=== PATIENT | female | born 1970 | race Caucasian/White ===

== ENCOUNTER → 2017-07-30 | Outpatient (CLI) | payer BC ==
[~2017-07-30] MED LIST: EFF50 PO
--- NOTE | 2017-07-31 07:26 | MAMMOGRAPHY REPORT ---
BILATERAL DIGITAL SCREENING MAMMOGRAM TOMOSYNTHESIS WITH CAD: 07/30/2017 CLINICAL HISTORY: Routine screening. Patient has no complaints. TECHNIQUE: Breast tomosynthesis in addition to standard 2D mammography was performed. Current study was also evaluated with a Computer Aided Detection (CAD) system. COMPARISON: Comparison is made to exams dated: 07/11/2016 mammogram, 07/08/2015 mammogram, 01/25/2012 mammogram, 12/08/2010 mammogram, and 11/03/2009 mammogram - [facility]. BREAST COMPOSITION: The tissue of both breasts is heterogeneously dense, which may obscure small mas ses. FINDINGS: The parenchymal pattern is unchanged. No developing mass, architectural distortion or clus ter of suspicious microcalcifications is seen in either breast. IMPRESSION: ACR BI-RADS CATEGORY 2: BENIGN There is no mammographic evidence of malignancy. A 1 year screening mammogram is recommended. The pa tient will receive written notification of the results. Approximately 10% of breast cancers are not detected with mammography. A negative mammographic report should not delay biopsy if a clinically suggestive mass is present. Viry Mtz M.D. ay/:07/30/2017 16:50:30 [employer] Manager: Evita FORBES)(Terry), [facility] letter sent: Normal 1/2 BI-RADS Code: ACR BI-RADS Category 2: Benign
== END | disposition home or self-care (01) ==
LOC: C.MAMM 13:06
PROVIDERS: ATTEND Family Medicine
DX: Z12.31 Encounter for screening mammogram for malignant neoplasm of breast (principal)

== ENCOUNTER 2019-03-18 05:03 | Inpatient (IN) ==
--- NOTE | 2019-02-13 15:37 | PAT Medication Instructions ---
Medication Instructions Date of Service February 13, 2019 Home Medications Epinephrine [EpiPen] 0.3 mg IM Q3H PRN levothyroxine 75 mcg PO QAM meloxicam 15 mg PO HS simvastatin 40 mg PO PM topiramate 50 mg PO BID venlafaxine 150 mg PO HS Continue as directed Epinephrine [EpiPen] 0.3 mg IM Q3H PRN (if needed) ASK your surgeon for instructions meloxicam 15 mg PO HS Take morning of surgery With a small sip of water, OTHERWISE NOTHING TO EAT OR DRINK AFTER MIDNIGHT: levothyroxine 75 mcg PO QAM topiramate 50 mg PO BID Take evening before surgery simvastatin 40 mg PO PM topiramate 50 mg PO BID venlafaxine 150 mg PO HS Other Notes If you have any questions please call us at [phone] or [phone] or [phone] or [phone]
--- NOTE | 2019-02-17 09:45 | Anesthesiology Consultation ---
Date of Service February 17, 2019 Assessment & Plan (1) Encounter for pre-operative examination: - Check test AM DOS Chart Review Chart Review: Acceptable Risk for Surgery and Patient seen in Pre Admission Test ing Teaching & Discussion Pre-Anesthesia Teaching/Discussion Notes: Instructed NPO after midnight before surgery,except medications with 15 cc of water. Medication instructions provided according to the PAT guidelines. History Surgery Operation Date: 03/18/19 07:00 Proposed Procedures p Right Total Knee Arthroplasty - Leonel Pepe MD Height/Weight Height: 5 ft 7 in Weight: 141.2 kg Allergies Allergy/AdvReac Type Severity Reaction Status Date / Time bee venom protein (honey bee) Allergy Severe Anaphylaxis Verified 02/13/19 15:00 Medications Home Medications Medication Instructions Recorded Confirmed Last Taken epinephrine [EpiPen] 0.3 mg IM Q3H PRN 02/13/19 02/13/19 Unknown levothyroxine 75 mcg PO QAM 02/13/19 02/13/19 Unknown meloxicam 15 mg PO HS 02/13/19 02/13/19 Unknown simvastatin 40 mg PO PM 02/13/19 02/13/19 Unknown topiramate 50 mg PO BID 02/13/19 02/13/19 Unknown venlafaxine 150 mg PO HS 02/13/19 02/13/19 Unknown Past Medical History Medical History Anxiety Depression Hyperlipidemia Hypothyroidism Migraine Morbid obesity Osteoarthritis Prediabetes Scoliosis MILD Sleep apnea NO DEVICE Temporomandibular joint disorder OCCASIONAL "POPPING"/NO LOCKING Exercise / Class Metabolic Activity II 4-5 Yardwork/Stairs/Walk up hill Past Family History Family History Grandmother (Paternal) Family history of diabetes mellitus Past Surgical History Surgical History Cyst RIGHT FOOT CYST EXCISION History of esophagogastroduodenoscopy (EGD) History of tonsillectomy History of tooth extraction Past Anesthesia History No Hx of Anesthesia Complications (EXCEPT POST-OP NAUSEA) and No Family Hx of Anesthesia Complications History of PONV No Hx of Motion Sickness and History of PONV Social History Smoking Status: Former smoker Do You Dip or Chew Tobacco: No Smoking End Date: QUIT 12 YEARS AGO Hx Alcohol Use: Yes Alcohol type: hard liquor alcohol intake frequency: a few times a month Hx Substance Use: No substance use type: does not use Review of Systems Patient denies chest pain, shortness of breath, dyspnea on exertion, joint pain, reflux, cough, wheezing, palpitations. Physical Exam Vital Signs VITALS BP 121/85 P 79 TEMP 98.8 SP02 96%RA RESP 16 PHYSICAL Full neck and c-spine range of motion. Full TMJ range of motion. TMD 3 finger breaths Mallampati Score 2 Dentition: intact, crown on molar/sides Lungs: clear throughout to auscultation Cardiac: regular rate and rhythm, no murmurs noted Spine: normal Carotid arteries: negative bruit Extremities: no edema Testing Laboratory Results 02/17/19 10:02 02/17/19 10:02 02/17/19 02/17/19 10:02 10:02 PT 10.2 INR 1.0 APTT 26.2 Blood Type A Positive Antibody Screen NEGATIVE Electrocardiogram Date: 02/17/19 Findings: + NSR @ (74) Chest X-Ray Date: 02/17/19 Findings: + NAD
--- NOTE | 2019-02-17 10:25 | XRay Report ---
XR chest Pre-admission PA/Lat CLINICAL HISTORY: pat preoperative evaluation COMPARISON STUDY: No previous studies for comparison. FINDINGS: The bones soft tissues and hemidiaphragms are normal. The cardiomediastinal silhouette is n ormal. The lungs are clear. The pulmonary vasculature is normal. IMPRESSION: Negative chest. The above report was generated using voice recognition software. It may contain grammatical, syntax or spelling errors. Electronically signed by: Chace Snell M.D. 02/17/2019 10:23 AM
[2019-02-17 11:31] LABS: Basophils # (auto) 0.02 K/uL (0-0.2); Basophils % (auto) 0.3 %; Eosinophils # (auto) 0.13 K/uL (0-0.5); Eosinophils % (auto) 2.1 %; Hematocrit (blood only) 43.3 % (37-47); Hemoglobin 14.4 g/dL (12.0-16.0); Immature Granulocytes # (auto) 0.02 K/uL (0.00-0.02); Immature Granulocytes % (auto) 0.3 %; Lymphocytes # (auto) 1.09 K/uL (1.2-3.4); Lymphocytes % (auto) 17.5 %; Mean Corpuscular Hgb Conc 33.3 g/dL (32-36); Mean Corpuscular Volume 86.6 fL (80-100); Monocytes # (auto) 0.49 K/uL (0.11-0.59); Monocytes % (auto) 7.9 %; Neutrophils # (auto) 4.49 K/uL (1.4-6.5); Neutrophils % (auto) 71.9 %; Platelet Count 182 K/uL (130-400); RDW Standard Deviation 43.9 fL (36.4-46.3); White Blood Count 6.24 K/uL (4.8-10.8)
[2019-02-17 11:40] LABS: Calcium 8.9 mg/dl (8.5-10.1); Creatinine Clr Calc Pharmacy 92.9 ml/min; Est GFR (African American) 69.8; Est GFR (Non-African American) 60.2; Potassium 4.3 mmol/L (3.5-5.1)
[2019-02-17 11:54] LABS: Partial Thromboplastin Time 26.2 Seconds (21.0-31.0); Prothrombin Time 10.2 Seconds (9.0-12.0)
--- NOTE | 2019-03-15 09:32 | History and Physical Report ---
DATE OF ADMISSION: 03/18/2019 CHIEF COMPLAINT: Right knee pain and discomfort. HISTORY OF PRESENT ILLNESS: The patient is a 48-year-old female referred to me by my partner, Dr. Monroy, for surgical treatment of her right knee. She has a 5-year history of gradually increasing right knee pain and discomfort. She describes a global pain in the knee. The more she walks, the more it hurts. She has been through extensive conservative treatment which provides very temporary relief only. She takes meloxicam, which helps a little bit. She has had various injections which have become less successful over time. It is really starting to limit her ability to get around and walk. If she is active one day, she will really pay for it the next day. She has nighttime pain. Difficulty going up and down steps. She would like to have her right knee fixed. PAST MEDICAL HISTORY: Significant for, 1. Elevated cholesterol. 2. Sleep apnea. 3. Anxiety/depression. 4. Hypothyroidism. 5. Arthritis. 6. Obesity with a BMI of 49. PAST SURGICAL HISTORY: 1. Tonsillectomy. 2. Cyst removed from her right foot. ALLERGIES: BEE VENOM. CURRENT MEDICINES: Include, 1. Effexor 150 mg once a day. 2. Levoxyl 75 mcg a day. 3. Meloxicam 15 mg. 4. Simvastatin 40 mg. 5. Topiramate 500 mg twice a day. SOCIAL HISTORY: A 48-year-old female. She drinks 3 drinks per week. Does not smoke. FAMILY HISTORY: Noncontributory. REVIEW OF SYSTEMS: Negative for diabetes. Denies any chest pain or shortness of breath. No history of DVT or PE. She has been in a weight loss program, but having difficulty with this due to her limited activity. PHYSICAL EXAMINATION: GENERAL: Reveals a pleasant middle-aged female, who looks to be in reasonably good health. HEENT: Benign. NECK: Supple. No lymphadenopathy. LUNGS: Clear to auscultation. HEART: Regular rate and rhythm. ABDOMEN: Soft, nontender, nondistended. EXTREMITIES: Grossly neurovascularly intact except as follows: Examination of the right knee reveals the patient walks with a slightly antalgic gait. A fairly large soft tissue envelope. Knee alignment looks pretty anatomic. Her range of motion is full extension, about 120 degrees of flexion. This is limited somewhat by her soft tissues. She has no AP or mediolateral instability. She does have pain with Manuel's testing. No pain with hip motion. X-RAYS: X-ray of the right knee reviewed. It shows advanced right knee DJD. She has got complete loss of medial joint space. She has got osteophytes off the medial femoral condyle and medial tibial plateau and a little bit of subchondral sclerosis. ASSESSMENT: A 48-year-old white female with underlying obesity with 5-year history of increasing right knee pain, discomfort, unresponsive to conservative treatment. She would really like to have her knee replaced. PLAN: We will take her to the operating room and do a right total knee replacement. The risks and benefits of this procedure were explained to the patient including, but not limited to, DVT, PE, , infection, neurological injury, vascular injury, bleeding problem, pain, limited range of motion, stiffness, failure to relieve symptoms, incomplete relief of symptoms, need for further surgery in the future, fracture, leg length inequality, nerve palsy, etc. The patient understands and desires to proceed. Informed consent was obtained. She knows at her young age, this may loosen or need to revise in the future and she is fully aware of this. She does not want to do home PT and she can go to outpatient therapy.
[2019-03-18] MEDS ORDERED: LR 60ML/HR IV SCH (06:00)
[2019-03-18] MEDS ORDERED: FAMOTIDINE 20 MG TAB PO SCH (06:00)
[2019-03-18] MEDS ORDERED: METOCLOPRAMIDE HCL 10 MG TABLET PO SCH (06:00)
[2019-03-18] MEDS ORDERED: ACETAMINOPHEN 500 MG TAB PO SCH (06:00)
[2019-03-18] MEDS ORDERED: CEFAZOLIN 3000MG 65 ML IV SCH (06:00)
[2019-03-18] MEDS ORDERED: LR 500ML BOLUS, THEN 15ML/HR IV SCH (06:00)
[2019-03-18] MEDS ORDERED: SCOPOLAMINE 1.5 MG TDSY TD SCH (06:00)
[2019-03-18] MEDS ORDERED: BUPIVACAINE LIPOSOME/PF 266 MG, BUPIVACAINE/EPINEPHRINE 50 ML, SODIUM CHLORIDE 0.9% 30 ... INFIL SCH (06:00)
[2019-03-18] MEDS ORDERED: GABAPENTIN 300 MG x 3 PO SCH (06:00)
[2019-03-18] MEDS ORDERED: ROPIVACAINE 0.5% 5 MG/ML 30 ML VIAL ONE (06:14)
[2019-03-18] MEDS ORDERED: BUPIVACAINE 0.5 % 5 MG/1 ML PF 10ML VIAL ONE (06:14)
[2019-03-18] MEDS ORDERED: ePHEDrine sulfate 50 MG/ML AMP IV PRN (06:24)
[2019-03-18] MEDS ORDERED: ONDANSETRON INJ 2 MG/ML 2 ML VIAL IV PRN ×2 (06:24→10:17)
[2019-03-18] MEDS ORDERED: ATROPINE SULFATE 0.1 MG/ML 10ML SYR IV PRN (06:24)
[2019-03-18] MEDS ORDERED: fentaNYL citrate 100 MCG/2 ML VIAL IV PRN (06:24)
[2019-03-18] MEDS ORDERED: MIDAZOLAM HCL 1 MG/ML 2ML VIAL ONE (06:27)
[2019-03-18] MEDS ORDERED: KETAMINE HCL INJ 50 MG/ML 10 ML VIAL ONE (06:28)
[2019-03-18] MEDS ORDERED: TRANEXAMIC ACID 1,000 MG **IV Intra-op IV SCH (06:30)
[2019-03-18] MEDS ORDERED: BACITRACIN INJ 50,000 UNIT VIAL ONE (06:33)
[2019-03-18] MEDS ORDERED: SODIUM CHLORIDE 0.9% PF 50 ML VIAL ONE (06:33)
[2019-03-18] MEDS ORDERED: BUPIVACAINE LIPOSOME 1.3% 266 MG/20 ML VIAL ONE (06:33)
[2019-03-18] MEDS ORDERED: fentaNYL citrate 100 MCG/2 ML VIAL ONE (06:34)
[2019-03-18] MEDS ORDERED: EPINEPHrine INJ 1 MG/ML AMP ONE (06:34)
[2019-03-18] MEDS ORDERED: BUPIVACAINE 0.25% 30 ML VIAL ONE (06:34)
--- NOTE | 2019-03-18 06:50 | History & Physical Bridge Note ---
Date of Service March 18, 2019 History & Physical Bridge Note I have examined the patient, reviewed the History & Physical and in the interval since the performance of the History & Physical I have noted the following changes of clinical significance: no changes noted
[2019-03-18] MEDS ORDERED: VANCOMYCIN HCL 1000MG/20ML VIAL ONE (07:06)
[2019-03-18] MEDS ORDERED: DEXAMETHASONE SOD INJ 4 MG/ML VIAL ONE (07:12)
[2019-03-18] MEDS ORDERED: PROPOFOL IV EMULSION 10 MG/ML 20 ML VIAL IV ONE ×4 (07:12→08:20)
[2019-03-18] MEDS ORDERED: GLYCOPYRROLATE 0.2 MG/ML VIAL ONE (07:12)
[2019-03-18] MEDS ORDERED: ONDANSETRON INJ 2 MG/ML 2 ML VIAL ONE (07:12)
[2019-03-18] MEDS ORDERED: LIDOCAINE HCL 2% 2 ML VIAL/AMP(20MG/ML) INFIL ONE (07:12)
--- NOTE | 2019-03-18 08:54 | Post Operative Brief Note ---
Immediate Post Op Note v1 Date of Surgery March 18, 2019 Pre & Post Diagnosis Operation Date: 03/18/19 07:00 Pre-Op Diagnosis: Right Knee Advanced Degenerative Joint Disease Post-Op Diagnosis: Right Knee Advanced Degenerative Joint Disease Procedure Operation Date: 03/18/19 07:00 Actual Procedures p Right Total Knee Arthroplasty(Right) - Leonel Pepe MD Surgeon Leonel Pepe MD Machine Presser Michael, PAC Estimated Blood Loss 50 Findings Consistent with Post-Op Diagnosis Fluids 1800 cc Specimens Right Knee Drains Patel Catheter (A 16 Croatian patel catheter was inserted by KYLAH Davis, without difficulty, clear yellow urine obtained, output to be monitored by Anesthesia.) Anesthesia Type Spinal MAC Complications none Disposition Accompanied Patient To Recovery: No Disposition: Recovery Room
--- NOTE | 2019-03-18 09:30 | XRay Report ---
XR knee RT 2V routine CLINICAL HISTORY: 48 years-old Female presenting with Surgical Post Op. TECHNIQUE: Frontal and crosstable lateral views of the right knee were obtained. COMPARISON: 01/16/2019. FINDINGS: There has been interval total right knee arthroplasty with patellar resurfacing. Expected intra-artic ular and soft tissue emphysema. Overlying skin sonido. No periprosthetic fracture or lucency. No mal alignment. IMPRESSION: Expected postsurgical appearance status post total right knee arthroplasty with patellar resurfacing. Electronically signed by: Juni Ibarra M.D. 03/18/2019 9:29 AM
--- NOTE | 2019-03-18 09:57 | Anesthesiology Progress Note ---
Date of Service March 18, 2019 Anesthesia Post Procedure Vital Signs Vital Signs: Temp Pulse Pulse Resp BP Pulse Ox 03/18/19 09:50 36.5 C 81 16 130/87 97 03/18/19 09:40 82 14 144/80 H 99 03/18/19 09:30 81 16 139/84 99 03/18/19 09:20 87 21 145/90 H 99 03/18/19 09:10 82 13 141/84 H 99 03/18/19 09:00 37.5 C 85 18 134/76 97 03/18/19 06:14 36.9 C 83 21 126/85 96 Pain Intensity Right Knee: Pain Intensity: 0 Transfer of Care Handoff Completed per policy Notes Mental Status: alert / awake / arousable Patient Amnestic to Procedure: Yes Nausea / Vomiting: adequately controlled Pain: adequately controlled Airway Patency, RR, SpO2: stable & adequate BP & HR: stable & adequate Hydration State: stable & adequate Neuraxial Anesthesia: was administered and sensory block is resolving Anesthetic Complications: no major complications apparent and Pt Satisfied with anesthetic care
[2019-03-18] MEDS ORDERED: BISACODYL 10 MG SUPP PR PRN (10:17)
[2019-03-18] MEDS ORDERED: EPINEPHrine INJ 1 MG/ML AMP IM PRN (10:17)
[2019-03-18] MEDS ORDERED: MAGNESIUM HYDROXIDE SUSP 30 ML UDC PO PRN (10:17)
[2019-03-18] MEDS ORDERED: HYDROmorphone INJ 0.5 MG/0.5 ML SYR IV PRN (10:17)
[2019-03-18] MEDS ORDERED: ALUMINUM/MAGNESIUM SUSP 30 ML UDC PO PRN (10:17)
[2019-03-18] MEDS ORDERED: NALOXONE HCL 0.4 MG/1 ML VIAL/CARP IV PRN (10:17)
[2019-03-18] MEDS ORDERED: METOCLOPRAMIDE HCL INJ 5 MG/ML 2 ML VIAL IV PRN (10:17)
--- NOTE | 2019-03-18 10:31 | Operative Report ---
DATE OF OPERATION: 03/18/2019 SURGEON: Leonel Pepe MD SALAD BAR CLERK: KYLAH Parra PREOPERATIVE DIAGNOSIS: Right knee degenerative joint disease. POSTOPERATIVE DIAGNOSIS: Right knee degenerative joint disease. PROCEDURE PERFORMED: Right cemented posterior stabilized total knee arthroplasty. COMPLICATIONS: None. ESTIMATED BLOOD LOSS: 50 mL. FLUID REPLACEMENT: 1800 mL crystalloid fluid replacement. TOURNIQUET TIME: 65 minutes at 350 mmHg. ANESTHESIA: Spinal with adductor canal block. DRAINS: None. SPECIMENS: Right knee sent for pathology. OPERATIVE INDICATIONS: The patient is a 48-year-old morbidly obese female who has had a long history of right knee pain and discomfort, unresponsive to conservative care. She had been treated by my partner, Dr. Monroy for several years. Pain has become more debilitating. She has attempted weight loss, but unsuccessful due to her limited mobility. X-rays revealed right knee DJD. She would like to proceed with surgical treatment. OPERATIVE FINDINGS: Operative findings revealed advanced right knee DJD with grade 4 changes in all 3 compartments, most severe in the medial side. She had a varus deformity to her knee. Very large soft tissue envelope. OPERATIVE IMPLANTS: Operative implants consisted of: 1. A Biomet Vanguard size 65 right posterior stabilized femoral component. 2. A Biomet size 67 tibial tray. 3. A 12 mm posterior stabilized polyethylene insert. 4. A 31 x 8 all poly patella. OPERATIVE PROCEDURE: The patient was taken to the operating room, identified and placed on the operating table in supine position. All contact areas were appropriately padded. IV antibiotics provided by anesthesia team. A spinal anesthetic and adductor canal block had been provided in the holding area. Swartz catheter was placed in sterile fashion. A right thigh tourniquet was then placed and the right lower extremity was then prepped and draped in usual sterile fashion. The right leg was elevated and exsanguinated with Esmarch and tourniquet was placed at 350 mmHg. An anterior approach of the right knee was then performed through a longitudinal incision centered over the patella. Sharp dissection was carried through the subcutaneous tissue down to the level of the extensor mechanism. A medial parapatellar arthrotomy incision was made. Some subperiosteal dissection was carried out medially. The fat pad resected from beneath the patellar tendon. The lateral patellofemoral ligament was released. The patella was subluxated laterally and the knee was flexed. The osteophytes were taken off the distal femur. The ACL and PCL were then released from the distal femur. The tibia was subluxated anteriorly. The external tibial alignment jig was then placed in the anterior face of the tibia and adjusted 14 mm medially. Proximal tibial cut was made to remove about 2 mm of bone from the most deficient aspect of the medial tibial plateau. Some osteophytes were taken off posteromedially. Tibia was sized to a size 67. Attention was then drawn to the femur. The distal femur was entered with a sharp drill bit. Intramedullary canal was suctioned. A right 5-degree valgus cutting guide was placed. Distal femoral cutting block was pinned in place. Distal femoral cut was made to take an additional 3 mm of bone off the distal femur. The femur was then sized to a size 65. We did downsize this almost an entire size due to the narrow medial and lateral dimensions. The AP cutting block was then pinned parallel to the epicondylar axis, which was 3 degrees of external rotation. The anterior cut, anterior chamfer, posterior cut, posterior chamfer cuts were made. Box cutting guide was placed and adjusted slightly lateral and box cut was made. The knee was flexed. The remnants of the medial and lateral menisci were excised. The osteophytes were taken off the posterior aspect of the femur. Trial femoral component was placed. The tibial tray was pinned in maximum external rotation and drill and stem punch were used to create defect in proximal tibia for the tibial tray. The knee was then trialed and 12 mm insert fit most appropriately. Attention was then drawn to the patella. The patella was cleaned of all soft tissues. Patellar thickness measured 20 mm in thickness, it was cut down to about 13. It was sized to a size 31 patella. Lug holes were drilled for 31 patella. The lateral osteophyte was removed. Patella button was placed. Knee was taken through range of motion, patella tracked nicely with no thumbs test. Attention was then drawn toward placement of permanent components. All trial components were removed. A bone plug was placed in the distal femur to limit blood loss. A double batch of Palacos G cement was mixed. I did add an additional gram of vancomycin due to her increased risk of infection due her morbid obesity. A Biomet size 65 right posterior stabilized femoral component, size 67 tibial tray, a 12 mm posterior stabilized polyethylene insert, and a 31 x 8 all poly patella then cemented in place. Knee was brought down to full extension until cement hardened. A final cement check was then performed. Pericapsular tissues were injected with a total of 100 mL of a combination of 20 mL of Exparel, 30 mL of normal saline, 50 mL of 0.25% Marcaine with epinephrine. The patient did receive 1 gram of tranexamic acid. The tourniquet was then let down for final tourniquet time of 65 minutes. Hemostasis was assured with use of electrocautery. The wound was once again irrigated. The extensor mechanism was then closed with combination of #1 PDS suture and #1 Vicryl suture in a [id number] fashion. Extensor mechanism was checked and found to be intact. Subcutaneous tissues were then closed with #2 Dexon suture in a buried interrupted fashion. Skin was closed with skin sonido. Leg was then cleaned, dried and a sterile dressing of Xeroform, 4 x 4, sterile cast padding and Simone bandage were applied. The patient then transferred to the recovery room in stable condition. The patient tolerated the procedure well with no complications. All needle and sponge counts were correct at the end of the operation. I attest to the content of the Intraoperative Record and any orders documented therein. Any exception s are noted below.
[2019-03-18] MEDS: SODIUM CHLORIDE 0.9% 1000ML 1,000 ML IV SCH ×2 (10:58→22:51)
[2019-03-18] MEDS: TOPIRAMATE 50 MG TAB PO SCH ×2 (12:07→20:13)
[2019-03-18] MEDS: MULTIVITAMIN TAB PO SCH (12:08)
[2019-03-18] MEDS: LEVOTHYROXINE SODIUM 75 MCG TABLET PO SCH ×2 (12:08→12:19)
[2019-03-18] MEDS: DOCUSATE SODIUM 100 MG CAP PO SCH ×2 (12:08→20:13)
[2019-03-18] MEDS: ASPIRIN 81 MG ECTAB PO SCH ×2 (12:08→20:13)
[2019-03-18] MEDS: KETOROLAC 30 MG/ML VIAL IV SCH ×3 (12:09→23:35)
[2019-03-18] MEDS: TAPENTADOL HCL ER 50 MG TABCR PO SCH ×2 (12:11→20:15)
--- NOTE | 2019-03-18 14:22 | Progress Note ---
DATE: 03/18/2019 SUBJECTIVE: A 48-year-old white female postop from a right knee replacement. She is doing well. Really not having much pain yet. No chest pain or shortness of breath. Not feeling dizzy or lightheaded. OBJECTIVE: VITAL SIGNS: Temperature 37.5. Vital signs stable. GENERAL: Physical examination shows a pleasant, middle-aged female. She is sitting up in bed, looks pretty comfortable. LUNGS: Clear to auscultation. HEART: Has a regular rate and rhythm. ABDOMEN: Soft, nontender, nondistended. EXTREMITIES: Grossly neurovascularly intact except as follows: Examination of the right lower extremity reveals the dressing to be clean, dry and intact. Leg is well aligned. She can dorsiflex and plantarflex her foot appropriately. She is neurologically intact. X-RAYS: X-rays of the right knee from recovery room reviewed. She has a right cemented posterior stabilized total knee arthroplasty. The components looked to be in good position. No signs of problems. ASSESSMENT: A 48-year-old white female postop from a right knee replacement, doing pretty well. Pain is controlled. She is neurologically intact. PLAN: 1. DVT prophylaxis including thigh-high TEDs, SCDs, and aspirin twice a day. 2. PT/OT. Weight bear as tolerated. Right total knee protocol. 3. Pain control, doing well with current pain regimen. 4. IV antibiotics x24 hours. 5. Disposition: Plan to discharge to home and she is going to do outpatient therapy once adequately recovered.
[2019-03-18] MEDS: ACETAMINOPHEN 500 MG TAB PO SCH ×2 (14:36→22:10)
[2019-03-18] MEDS: CHECK SCOPOLAMINE PATCH PLACEMENT SCH ×2 (15:31→23:38)
[2019-03-18] MEDS: CEFAZOLIN 2000MG 2,000 MG/15 ML SYR IV SCH ×2 (15:31→23:35)
[2019-03-18] MEDS: OXYCODONE HCL IR 5 MG TAB (IMMEDIATE RELEASE) PO PRN ×2 (15:57→23:35)
[2019-03-18] MEDS ORDERED: TRANEXAMIC ACID 1,000 MG in 0.9 % SODIUM CHLORIDE 100 ML IV SCH (16:00)
[2019-03-18] MEDS: ASCORBIC ACID 500 MG TAB PO SCH (17:40)
[2019-03-18] MEDS: FERROUS GLUCONATE 324 MG TAB PO SCH (17:40)
[2019-03-18] MEDS: SENNA 8.6 MG TAB PO SCH (20:13)
[2019-03-18] MEDS: SIMVASTATIN 40 MG TAB PO SCH (20:13)
[2019-03-18] MEDS: VENLAFAXINE HCL XR 150 MG CAPXR PO SCH (20:13)
[2019-03-19] MEDS: ACETAMINOPHEN 500 MG TAB PO SCH ×3 (05:30→21:17)
[2019-03-19] MEDS: KETOROLAC 30 MG/ML VIAL IV SCH ×4 (05:30→23:39)
[2019-03-19] MEDS: LEVOTHYROXINE SODIUM 75 MCG TABLET PO SCH (05:31)
[2019-03-19 07:01] LABS: Hematocrit (blood only) 36.3 % (37-47); Hemoglobin 11.7 g/dL (12.0-16.0); Mean Corpuscular Hgb Conc 32.2 g/dL (32-36); Mean Corpuscular Volume 87.1 fL (80-100); Mean Platelet Volume 10.2 fL (7.4-10.4); Platelet Count 165 K/uL (130-400); RDW Coefficient of Variation 13.7 % (11.5-14.5); RDW Standard Deviation 43.3 fL (36.4-46.3); Red Blood Count 4.17 M/uL (4.2-5.4); White Blood Count 10.26 K/uL (4.8-10.8)
[2019-03-19 07:31] LABS: BUN Creatinine Ratio 14.7 (10-20); Calcium 8.1 mg/dl (8.5-10.1); Creatinine Clr Calc Pharmacy 96.1 ml/min; Est GFR (African American) 72.2; Est GFR (Non-African American) 62.3; Potassium 3.6 mmol/L (3.5-5.1)
--- NOTE | 2019-03-19 08:04 | Anesthesiology Progress Note ---
Date of Service March 19, 2019 Anesthesia Post Procedure Vital Signs Vital Signs: Temp Pulse Pulse Pulse Pulse Resp BP 03/19/19 07:30 36.8 C 75 16 114/76 03/19/19 03:32 36.7 C 77 14 119/69 03/18/19 22:35 37.2 C 83 14 03/18/19 20:09 37.2 C 99 H 16 03/18/19 15:40 37.3 C 89 16 03/18/19 13:19 94 H 16 03/18/19 12:15 93 H 16 03/18/19 11:15 80 16 03/18/19 10:47 85 16 03/18/19 10:15 37.5 C 87 18 03/18/19 09:50 36.5 C 81 16 03/18/19 09:40 82 14 03/18/19 09:30 81 16 03/18/19 09:20 87 21 03/18/19 09:10 82 13 03/18/19 09:00 37.5 C 85 18 BP Pulse Ox 03/19/19 07:30 98 03/19/19 03:32 94 03/18/19 22:35 134/70 94 03/18/19 20:09 153/92 H 96 03/18/19 15:40 145/76 H 94 03/18/19 13:19 123/80 98 03/18/19 12:15 152/93 H 98 03/18/19 11:15 145/84 H 95 03/18/19 10:47 129/89 97 03/18/19 10:15 137/83 98 03/18/19 09:50 130/87 97 03/18/19 09:40 144/80 H 99 03/18/19 09:30 139/84 99 03/18/19 09:20 145/90 H 99 03/18/19 09:10 141/84 H 99 03/18/19 09:00 134/76 97 Pain Intensity Right Knee: Pain Intensity: 6 Notes Mental Status: alert / awake / arousable and participated in evaluation Nausea / Vomiting: adequately controlled Pain: adequately controlled Airway Patency, RR, SpO2: stable & adequate BP & HR: stable & adequate Hydration State: stable & adequate Neuraxial Anesthesia: sensory block resolved Anesthetic Complications: Pt Satisfied with anesthetic care
[2019-03-19] MEDS: DOCUSATE SODIUM 100 MG CAP PO SCH ×2 (08:26→20:38)
[2019-03-19] MEDS: FERROUS GLUCONATE 324 MG TAB PO SCH ×2 (08:26→18:04)
[2019-03-19] MEDS: ASCORBIC ACID 500 MG TAB PO SCH ×2 (08:26→18:04)
[2019-03-19] MEDS: MULTIVITAMIN TAB PO SCH (08:27)
[2019-03-19] MEDS: ASPIRIN 81 MG ECTAB PO SCH ×2 (08:27→20:38)
[2019-03-19] MEDS: TOPIRAMATE 50 MG TAB PO SCH ×2 (08:27→20:38)
[2019-03-19] MEDS: OXYCODONE HCL IR 5 MG TAB (IMMEDIATE RELEASE) PO PRN ×2 (08:30→21:46)
[2019-03-19] MEDS: TAPENTADOL HCL ER 50 MG TABCR PO SCH ×2 (08:30→20:41)
--- NOTE | 2019-03-19 10:32 | Progress Note ---
DATE: 03/19/2019 SUBJECTIVE: A 48-year-old female postop day 1 from right knee replacement. She is doing okay. Pain kind vacillates from time to time based on her activity level; sometimes a 3 while resting and up to 7 or 8 otherwise. No chest pain. No shortness of breath. Not feeling dizzy or lightheaded. OBJECTIVE: VITAL SIGNS: Temperature 36.8. Vital signs stable. GENERAL: Reveals a pleasant, middle-aged female. She is lying in bed, looks pretty comfortable. EXTREMITIES: Examination of the right leg reveals the dressing to be in place. It has been slightly reinforced superiorly. She has a large soft tissue envelope. She can dorsiflex and plantarflex her foot appropriately. She is neurologically intact. LABORATORY DATA: Hemoglobin 11.7. Hematocrit 36.3. Electrolytes are stable. ASSESSMENT: A 48-year-old female postop day 1 from right knee replacement, doing pretty well. Pain is controlled. She is neurologically intact. PLAN: 1. DVT prophylaxis including thigh-high TEDs, SCDs, and aspirin twice a day. 2. PT/OT. Weight bear as tolerated. Right total knee protocol. 3. Pain control, doing okay with current pain regimen. 4. Disposition: She is planning to be discharged home. She is going to do outpatient therapy.
[2019-03-19] MEDS: SENNA 8.6 MG TAB PO SCH (20:38)
[2019-03-19] MEDS: VENLAFAXINE HCL XR 150 MG CAPXR PO SCH (20:38)
[2019-03-19] MEDS: SIMVASTATIN 40 MG TAB PO SCH (20:38)
[2019-03-20] MEDS: KETOROLAC 30 MG/ML VIAL IV SCH ×2 (06:02→06:08)
[2019-03-20] MEDS: ACETAMINOPHEN 500 MG TAB PO SCH ×2 (06:02→14:11)
[2019-03-20] MEDS: LEVOTHYROXINE SODIUM 75 MCG TABLET PO SCH (06:02)
--- NOTE | 2019-03-20 06:36 | Ultrasound Report ---
US venous doppler LE RT CLINICAL HISTORY: Right calf pain COMPARISON STUDY: No previous studies for comparison. FINDINGS: Real-time and color flow Doppler imaging were performed. Flow was seen within the femoral, popliteal and calf veins with no intraluminal thrombus demonstrated. The saphenous vein is patent. Th e examination is somewhat limited given the patient's large body habitus (BMI 49). There is a complex right popliteal fossa cyst measuring 6.5 x 1.5 x 2.4 cm. IMPRESSION: No evidence of right lower extremity DVT. Electronically signed by: Kory Christiansen M.D. 03/20/2019 6:34 AM
--- NOTE | 2019-03-20 08:13 | Progress Note ---
DATE: 03/20/2019 SUBJECTIVE: A 48-year-old white female postop day 2 from right knee replacement. She is doing pretty well. Pain is controlled. Denies any chest pain or shortness of breath. OBJECTIVE: VITAL SIGNS: Temperature 36.8. Vital signs stable. GENERAL: Reveals a pleasant, middle-aged female. She was standing up washing up in her bathroom when I visited her this morning. EXTREMITIES: Examination of the right knee reveals the dressing to be clean, dry and intact. The leg is well aligned. She can dorsiflex and plantarflex her foot appropriately. NEUROLOGIC: She is neurologically intact. ASSESSMENT: A 48-year-old female postop day 2 from right knee replacement, doing well. Pain is controlled. PLAN: 1. DVT prophylaxis including thigh-high TEDs, SCDs, and aspirin twice a day. 2. PT/OT. Weight bear as tolerated. Right total knee protocol. 3. Pain control. Doing well with current pain regimen. 4. Disposition: Plan to discharge to home and she is going to do outpatient therapy. WARREN
[2019-03-20] MEDS: TAPENTADOL HCL ER 50 MG TABCR PO SCH (08:17)
[2019-03-20] MEDS: MULTIVITAMIN TAB PO SCH (08:17)
[2019-03-20] MEDS: ASCORBIC ACID 500 MG TAB PO SCH (08:17)
[2019-03-20] MEDS: FERROUS GLUCONATE 324 MG TAB PO SCH (08:17)
[2019-03-20] MEDS: DOCUSATE SODIUM 100 MG CAP PO SCH (08:18)
[2019-03-20] MEDS: ASPIRIN 81 MG ECTAB PO SCH (08:18)
[2019-03-20] MEDS: TOPIRAMATE 50 MG TAB PO SCH (08:18)
[2019-03-20] MEDS: OXYCODONE HCL IR 5 MG TAB (IMMEDIATE RELEASE) PO PRN ×2 (08:19→14:19)
--- NOTE | 2019-03-26 17:01 | Discharge Summary ---
ADMITTING PHYSICIAN AND SURGEON: Dr. Leonel Pepe. ADMITTING DIAGNOSIS: Right knee degenerative joint disease. SURGERY PERFORMED: Right total knee arthroplasty. SECONDARY DIAGNOSES: Elevated cholesterol, sleep apnea, anxiety, depression, hypothyroidism, arthritis, obesity. CONSULTS: None obtained. HISTORY AND PHYSICAL EXAMINATION: Well documented in the patient's chart. HOSPITAL COURSE: The patient was admitted on 03/18/2019 underwent total knee arthroplasty, tolerated the procedure well. There were no complications. She is transferred to the PACU postoperatively and later to the orthopedic floor for further care. She was given Ancef for antibiotic prophylaxis, TOMY stockings, SCDs and aspirin for DVT prophylaxis. Hemoglobin, hematocrit and vital signs were monitored during her hospital stay and remained stable. She did not require blood transfusions. By postoperative day 2, she was tolerating a regular diet, pain was controlled with oral pain medicine. She was participating in physical therapy. On postop day 2, she was discharged home. She was given printed discharge instructions as well as new prescriptions for extra strength Tylenol, aspirin, oxycodone. Continue her home medications, continue physical therapy, weightbearing as tolerated, TOMY stockings. Follow up approximately 2 weeks postop or sooner if there are any problems or concerns.
== END 2019-03-20 16:15 | disposition home or self-care (01) ==
LOC: ASU 05:03 → 3E 10:13